=== PATIENT | male | born 1945 | race Caucasian/White ===

== ENCOUNTER 2020-12-04 20:27 | Emergency (ER) | payer MEDICARE, OTHER ==
[2020-12-04 21:44] LABS: HEMOGLOBIN 13.9 gm/dl (14.0-17.5); RED BLOOD COUNT 4.6 M/UL (4.20-5.50); WHITE BLOOD COUNT 6.8 K/UL (4.5-11.0)
[2020-12-05] MEDS ORDERED: ELIQUIS5 MG PO (02:08)
[2020-12-31] MEDS ORDERED: WARFARIN SODIUM5 MG PO (12:19)
== END 2020-12-05 02:40 | disposition home or self-care (01) ==
LOC: ER1 20:27
PROVIDERS: Physician Assistant
DX: I26.99 Other pulmonary embolism without acute cor pulmonale (principal); Z20.822 Contact with and (suspected) exposure to COVID-19; R53.1 Weakness; E78.5 Hyperlipidemia, unspecified; I10 Essential (primary) hypertension
CPT/HCPCS: 71045; 73590; 73610; 80053; 81001; 82550; 82553; 83874; 83880; 84439; 84443; 84484; 85025; 85379; 87086; 93005; 99285; Q9967; U0002

== ENCOUNTER → 2020-12-31 | Outpatient (CLI) | payer MEDICARE, OTHER ==
[~2020-12-31] MED LIST: ARICEPT10 MG PO; ASPIRIN EC81 MG PO; CARVEDILOL3.125 MG PO; DRISDOL1250 MCG PO; ELIQUIS5 MG PO; LOVENOX100 MG/1 M SQ; MAXZIDE 75 MG-1 EACH PO; PRAVASTATIN SOD80 MG PO; PROSCAR 5 MG TAB5 MG PO; RAPAFLO4 MG PO; WARFARIN SODIUM5 MG PO; ZYLOPRIM 100 M100 MG PO
== END ==
LOC: CT 07:38
DX: Z51.81 Encounter for therapeutic drug level monitoring (principal); Z79.01 Long term (current) use of anticoagulants; I26.99 Other pulmonary embolism without acute cor pulmonale
CPT/HCPCS: 36415; 85610; 85730; Q9967

== ENCOUNTER 2021-01-04 07:44 | Inpatient (IN) | payer MEDICARE, OTHER ==
[~2021-01-04] VITALS: Ht 180.3 cm; Wt 98.9 kg
[~2021-01-04 07:44] MED LIST changes: -ARICEPT10 MG PO; -ASPIRIN EC81 MG PO; -CARVEDILOL3.125 MG PO; -DRISDOL1250 MCG PO; -LOVENOX100 MG/1 M SQ; -MAXZIDE 75 MG-1 EACH PO; -PRAVASTATIN SOD80 MG PO; -PROSCAR 5 MG TAB5 MG PO; -RAPAFLO4 MG PO; -ZYLOPRIM 100 M100 MG PO
[2021-01-04 08:41] LABS: HEMOGLOBIN 15.6 gm/dl (14.0-17.5); RED BLOOD COUNT 4.98 M/UL (4.20-5.50); WHITE BLOOD COUNT 6.1 K/UL (4.5-11.0)
[2021-01-04] MEDS ORDERED: PRAVASTATIN SOD80 MG PO (11:36)
[2021-01-04] MEDS ORDERED: ARICEPT10 MG PO (11:36)
[2021-01-04] MEDS ORDERED: DRISDOL1250 MCG PO (11:36)
[2021-01-04] MEDS ORDERED: PROSCAR 5 MG TAB5 MG PO (11:38)
[2021-01-04] MEDS ORDERED: ZYLOPRIM 100 M100 MG PO (11:39)
[2021-01-04] MEDS ORDERED: MAXZIDE 75 MG-1 EACH PO (11:39)
[2021-01-04] MEDS ORDERED: RAPAFLO4 MG PO (11:40)
[2021-01-05 03:09] LABS: WHITE BLOOD COUNT 5.6 K/UL (4.5-11.0)
[2021-01-05 03:15] LABS: HEMOGLOBIN 13.4 gm/dl (14.0-17.5); RED BLOOD COUNT 4.36 M/UL (4.20-5.50)
[2021-01-09 04:57] LABS: HEMOGLOBIN 14.2 gm/dl (14.0-17.5); RED BLOOD COUNT 4.53 M/UL (4.20-5.50); WHITE BLOOD COUNT 6.9 K/UL (4.5-11.0)
[2021-01-09] MEDS ORDERED: CARVEDILOL3.125 MG PO (17:55)
[2021-01-09] MEDS ORDERED: ASPIRIN EC81 MG PO (17:55)
[2021-01-10 06:42] LABS: HEMOGLOBIN 14.1 gm/dl (14.0-17.5); RED BLOOD COUNT 4.55 M/UL (4.20-5.50); WHITE BLOOD COUNT 7.2 K/UL (4.5-11.0)
--- NOTE | 2021-01-10 10:29 | NUR ---
GAVE VERBAL ORDER TO D/C TELE AT THIS TIME FOR A SHOWER.
[2021-01-10] MEDS ORDERED: LOVENOX100 MG/1 M SQ (10:35)
--- NOTE | 2021-01-10 11:21 | NUR ---
STAY UNTIL LIFEVEST PLACED. TAKE ALL MEDS ORDERED TO ASSIST WITH CARDIAC OUTPUT. KEEP ALL APPOINTMENTS. PROPER DIET AND EXERCISE FOR HEART FAILURE. VERBALIZED UNDERSTANDING. JESUS HERNADEZ R.N.
== END 2021-01-10 14:08 | disposition home or self-care (01) | DRG 286 ==
LOC: ER1 07:44 → CDU 10:41 → MED SURG 4 10:41
PROVIDERS: Family Medicine; Physician Assistant; Physician Assistant Medical; ADMIT Internal Medicine
PROC: 4A023N7 Measurement of Cardiac Sampling and Pressure, Left Heart, Percutaneous Approach (ICD-10-PCS; principal; 2021-01-09)
PROC: B2151ZZ Fluoroscopy of Left Heart using Low Osmolar Contrast (ICD-10-PCS; 2021-01-09)
DX: I13.0 Hypertensive heart and chronic kidney disease with heart failure and stage 1 through stage 4 chronic kidney disease, or unspecified chronic kidney disease (principal); I50.23 Acute on chronic systolic (congestive) heart failure; N17.9 Acute kidney failure, unspecified; I44.7 Left bundle-branch block, unspecified; I25.5 Ischemic cardiomyopathy; E78.5 Hyperlipidemia, unspecified; N40.0 Benign prostatic hyperplasia without lower urinary tract symptoms; M10.9 Gout, unspecified; N18.30 Chronic kidney disease, stage 3 unspecified; N20.0 Calculus of kidney; Z86.711 Personal history of pulmonary embolism; Z86.73 Personal history of transient ischemic attack (TIA), and cerebral infarction without residual deficits; Z82.49 Family history of ischemic heart disease and other diseases of the circulatory system; Z86.718 Personal history of other venous thrombosis and embolism; Z79.01 Long term (current) use of anticoagulants
CPT/HCPCS: ECHO; 0240U; 36415; 71045; 80048; 80053; 82550; 82553; 83735; 83874; 83880; 84484; 85025; 85027; 85610; 85730; 93005; 93306; 94760; 99152; 99153; 99285; A6212; C1769; C1894; J1644; J1650; J1940; J2250; J3010; J7040; Q9965

== ENCOUNTER → 2021-02-27 | Outpatient (CLI) | payer MEDICARE, OTHER ==
[~2021-02-27] MED LIST changes: +ARICEPT10 MG PO; +ASPIRIN EC81 MG PO; +CARVEDILOL3.125 MG PO; +DRISDOL1250 MCG PO; +LOVENOX100 MG/1 M SQ; +MAXZIDE 75 MG-1 EACH PO; +PRAVASTATIN SOD80 MG PO; +PROSCAR 5 MG TAB5 MG PO; +RAPAFLO4 MG PO; +ZYLOPRIM 100 M100 MG PO
== END ==
LOC: ECHO 09:37
DX: I50.9 Heart failure, unspecified (principal); I08.0 Rheumatic disorders of both mitral and aortic valves
CPT/HCPCS: ECHO; 71046; 93306